=== PATIENT | female | born 1970 | race Caucasian/White ===

== ENCOUNTER 2020-10-24 15:14 | Emergency (ER) | payer OTHER | END 2020-10-24 20:14 | disposition home or self-care (01) | LOC: CSHERS 15:14 | DX: M79.621 Pain in right upper arm (principal) ==

== ENCOUNTER 2021-11-10 15:37 | Outpatient (CLI) | payer BC | END 2021-11-10 15:38 | disposition home or self-care (01) | LOC: CSHMAMMO 15:37 | PROVIDERS: ATTEND Obstetrics & Gynecology | DX: Z12.31 Encounter for screening mammogram for malignant neoplasm of breast (principal); Z91.89 Other specified personal risk factors, not elsewhere classified | CPT/HCPCS: 77063; 77067 ==

== ENCOUNTER 2022-11-11 15:21 | Outpatient (CLI) | payer BC | END 2022-11-11 15:22 | disposition home or self-care (01) | LOC: CSHMAMMO 15:21 | PROVIDERS: ATTEND Nurse Practitioner Family | DX: Z12.31 Encounter for screening mammogram for malignant neoplasm of breast (principal); Z91.89 Other specified personal risk factors, not elsewhere classified | CPT/HCPCS: 77063; 77067 ==

== ENCOUNTER 2024-12-07 11:26 | Outpatient (CLI) | payer BC | END 2024-12-07 11:27 | disposition home or self-care (01) | LOC: CSHMAMMO 11:26 | PROVIDERS: ATTEND Nurse Practitioner Family | DX: Z12.31 Encounter for screening mammogram for malignant neoplasm of breast (principal); Z85.828 Personal history of other malignant neoplasm of skin; Z91.89 Other specified personal risk factors, not elsewhere classified | CPT/HCPCS: 77063; 77067 ==